=== PATIENT | male | born 1950 | race Caucasian/White ===

== ENCOUNTER 2017-02-03 13:13 | Emergency (ER) | payer SELFPAY ==
[~2017-02-03 13:13] MED LIST: BUPRTAB PO; DOXE100C4 PO; GEMF600T PO; IBUP-1050 PO; MULT-506 PO; MULT-600 PO; NAPR1CAP12 PO; OXYC-57 PO
== END 2017-02-03 13:21 | disposition home or self-care (01) ==
LOC: C.EDB 13:15
DX: K59.00 Constipation, unspecified (principal)

== ENCOUNTER 2017-09-29 12:31 | Emergency (ER) | payer SELFPAY ==
[~2017-09-29] VITALS: Ht 174 cm; Wt 92.4 kg
[2017-09-29 12:38] VITALS: TEMP 36.8; Ht 174 cm; Wt 92.4 kg
--- NOTE | 2017-09-29 12:55 | EMERGENCY ROOM VISIT NOTE ---
History Report prepared by Chachaibmarcin: Rhianna Jackson Under the Supervision of: Dr. Fede Carty M.D. First contact with patient: 12:45 Chief Complaint: RESPIRATORY PROBLEMS Stated Complaint: TROUBLE BREATHING DUE TO CHEST COLD History of Present Illness The patient is a 67 year old male who presents to the Emergency Room with complaints of worsening breathing difficulty for the past 3 weeks. He states he developed a chest cold 3 weeks ago, and since then has become increasingly short of breath. He reports "I've been coughing a lot and every now and then, I feel like I'm not getting enough air". Earlier today while watching TV, he experienced an episode of feeling very short of breath, so he decided to come to the ED. The patient notes his cough is productive with clear sputum. He experienced rhinorrhea when the cold first started, but states it has resolved. He did receive a flu shot this year. He denies chest pain or increase in his symptoms when he shoveled snow approximately 1 week ago. The patient admits he was briefly a smoker approximately 40 years ago. He denies any history of chronic lung problems but has experienced bronchitis in the past. He does not take daily blood thinners and denies any history of blood clots or diabetes. His reports he takes daily Lipitor, Clonazepam and Oxycodone for chronic knee and back pain. He denies any recent fevers, sore throat, chest pain, abdominal pain, nausea, vomiting, diarrhea or urinary symptoms. Source of History: patient, spouse/significant other () Onset: 3 weeks [employer] Position: chest Timing: worsening Associated Symptoms: + cough, No fevers, No sorethroat, No chest pain, No nausea, No vomiting, No abdominal pain, No diarrhea, No urinary symptoms Review of Systems See HPI for pertinent positives & negatives. A total of 10 systems reviewed and were otherwise negative. Past Medical & Surgical Medical Problems: (1) Benign hypertension (2) Hyperlipidemia (3) Lumbar disc disease (4) RMSF ([place] spotted fever) Old medical records were reviewed. Nurse's notes were reviewed and I agree with. Family History No significant family history Social History Smoking Status: Former Smoker Alcohol Use: none Drug Use: none Marital Status: , Housing Status: lives with significant other Occupation Status: retired Current/Historical Medications Scheduled Atorvastatin (Lipitor), 20 MG PO DAILY Doxepin Hcl (Doxepin), 100 MG PO QPM Multiple Vitamins W/ Minerals (Mens Multi Vitamin & Mine), 1 PKT PO DAILY Scheduled PRN Ibuprofen (Advil), 800 MG PO DAILY PRN Oxycodone/Acetaminophen 5MG/325MG (Percocet 5MG/325MG), 1 TABLET PO TID PRN for Pain Allergies Coded Allergies: Bacitracin (Verified Allergy, Intermediate, facial swelling, 01/21/15) Neomycin (Verified Allergy, Intermediate, facial swelling, 01/21/15) Polymyxin B (Verified Allergy, Intermediate, facial swelling, 01/21/15) Physical Exam Vital Signs Date Time Temp Pulse Resp B/P (MAP) Pulse Ox O2 Delivery O2 Flow Rate FiO2 09/29/17 17:20 73 16 136/81 96 09/29/17 15:15 73 16 136/81 96 Room Air 09/29/17 13:49 82 18 125/87 95 Room Air 09/29/17 13:08 97 09/29/17 12:38 36.8 109 18 149/93 97 Room Air Physical Exam General: Well developed, well nourished non-ill appearing middle aged male, in no acute distress, breathing comfortably on room air. Normal speech HEENT: Normal cephalic atraumatic. Pupils are equal round and reactive to light. Extraocular movements are intact. Oropharynx is pink with moist mucous membranes. No swelling of the mouth lips or tongue. Neck: Supple with a midline trachea. No meningeal signs or stiffness, no JVD or bruits. No Stridor. Chest: Clear to auscultation bilaterally. Occasional dry cough. No wheezes or rhonchi. No increased work of breathing. Heart: regular rate and rhythm. Abdomen: Soft nontender, nondistended without rebound guarding or rigidity. Extremities: No cyanosis clubbing or edema. No calf tenderness or assymetry Spine/Back. Non tender to palpation. No CVA tenderness Skin: Good turgor without rashes. Neurologic exam: Cranial nerves two through 12 are intact. Motor and sensation are intact and symmetrical throughout. Medical Decision & Procedures ER Provider Diagnostic Interpretation: Radiology results as stated below per my review and radiologist interpretation: SINGLE VIEW CHEST CLINICAL HISTORY: Atypical chest pain. FINDINGS: An AP, portable, upright chest radiograph is obtained. No prior studies are available for comparison at the time of dictation. The examination is degraded by portable technique and patient rotation. The cardiomediastinal silhouette is unremarkable. The lungs and pleural spaces are clear. No pneumothorax is seen. The bony thorax is grossly intact. IMPRESSION: No active disease in the chest. Electronically signed by: Suresh Hector M.D. 09/29/2017 1:[address] ANGIOGRAM OF THE CHEST CLINICAL HISTORY: Dyspnea. COMPARISON STUDY: Chest x-ray dated 09/29/2017. TECHNIQUE: Following the IV administration of 105 cc of Optiray 320, CT angiogram of the chest was performed from the upper abdomen to the thoracic inlet utilizing the pulmonary embolus protocol. Images are reviewed in the axial, sagittal, and coronal planes. 3-D MIPS images are created and assessed. IV contrast was administered without complication. A dose lowering technique was utilized adhering to the principles of ALARA. CT DOSE: 489.30 mGycm FINDINGS: Thyroid: Imaged portions of the thyroid gland are normal in size and attenuation. Thoracic aorta: The thoracic aorta is normal in caliber and demonstrates standard 3-vessel arch anatomy. No dissection is seen. Pulmonary vasculature: The pulmonary trunk is normal in caliber. There are no filling defects identified in main, lobar, or segmental pulmonary branches to suggest pulmonary embolus. Heart: The heart is normal in size and configuration, and without pericardial effusion. The coronary arteries are densely calcified. Lungs and pleural spaces: The lungs and pleural spaces are clear. Trachea and central airways are patent. Mediastinum: There is no mediastinal lymphadenopathy. Nadiya: Clear. Axillae: There is no axillary lymphadenopathy. Upper abdomen: There is a tiny hiatal hernia. Partially visualized upper abdominal viscera is within normal limits. Skeletal structures: The skeletal structures are osteopenic. Mild degenerative change is noted throughout the thoracic spine. No lytic or blastic bony lesions are seen. IMPRESSION: 1. There is no evidence of pulmonary embolus in the main, lobar, or segmental pulmonary arteries. 2. The lungs are clear. Electronically signed by: Suresh Hector M.D. 09/29/2017 3:42 PM Laboratory Results 09/29/17 13:28 Red Blood Count 4.09, Mean Corpuscular Volume 99.0, Mean Corpuscular Hemoglobin 34.5, Mean Corpuscular Hemoglobin Concent 34.8, Mean Platelet Volume 10.1, Neutrophils (%) (Auto) 53.6, Lymphocytes (%) (Auto) 32.1, Monocytes (%) (Auto) 11.5, Eosinophils (%) (Auto) 2.4, Basophils (%) (Auto) 0.1, Neutrophils # (Auto ) 4.19, Lymphocytes # (Auto) 2.51, Monocytes # (Auto) 0.90, Eosinophils # (Auto ) 0.19, Basophils # (Auto) 0.01 09/29/17 13:28 Test 09/29/17 13:28 09/29/17 13:31 White Blood Count 7.82 K/uL (4.8-10.8) Red Blood Count 4.09 M/uL (4.7-6.1) Hemoglobin 14.1 g/dL (14.0-18.0) Hematocrit 40.5 % (42-52) Mean Corpuscular Volume 99.0 fL (80-100) Mean Corpuscular Hemoglobin 34.5 pg (25-34) Mean Corpuscular Hemoglobin Concent 34.8 g/dl (32-36) Platelet Count 263 K/uL (130-400) Mean Platelet Volume 10.1 fL (7.4-10.4) Neutrophils (%) (Auto) 53.6 % Lymphocytes (%) (Auto) 32.1 % Monocytes (%) (Auto) 11.5 % Eosinophils (%) (Auto) 2.4 % Basophils (%) (Auto) 0.1 % Neutrophils # (Auto) 4.19 K/uL (1.4-6.5) Lymphocytes # (Auto) 2.51 K/uL (1.2-3.4) Monocytes # (Auto) 0.90 K/uL (0.11-0.59) Eosinophils # (Auto) 0.19 K/uL (0-0.5) Basophils # (Auto) 0.01 K/uL (0-0.2) RDW Standard Deviation 41.4 fL (36.4-46.3) RDW Coefficient of Variation 11.6 % (11.5-14.5) Immature Granulocyte % (Auto) 0.3 % Immature Granulocyte # (Auto) 0.02 K/uL (0.00-0.02) D-Dimer 690 ug/L FEU (0-500) Anion Gap 6.0 mmol/L (3-11) Est Creatinine Clear Calc Drug Dose 65.8 ml/min Estimated GFR () 72.5 Estimated GFR (Non- 62.6 BUN/Creatinine Ratio 18.7 (10-20) Calcium Level 9.1 mg/dl (8.5-10.1) Total Bilirubin 0.3 mg/dl (0.2-1) Direct Bilirubin < 0.1 mg/dl (0-0.2) Aspartate Amino Transf (AST/SGOT) 24 U/L (15-37) Alanine Aminotransferase (ALT/SGPT) 29 U/L (12-78) Alkaline Phosphatase 86 U/L (45-117) Pro-B-Type Natriuretic Peptide 138 pg/ml (0-900) Total Protein 8.3 gm/dl (6.4-8.2) Albumin 3.7 gm/dl (3.4-5.0) Lipase 144 U/L (73-393) Bedside Troponin I < 0.030 ng/ml (0-0.045) Laboratory studies as stated above per my review. Medications Administered Medications (Trade) Dose Ordered Sig/Wesley Route Start Time Stop Time Status Last Admin Dose Admin Azithromycin (Zithromax Tab) 500 mg NOW ONCE PO 09/29/17 16:15 09/29/17 16:16 DC 09/29/17 16:27 500 MG ECG Indication: SOB/dyspnea Rate (beats per minute): 92 Rhythm: normal sinus Findings: PAC (occasional PAC), other (Non-specific T-wave abnormality) Change: no significant change (No change from EKG on 01/06/07) Change: EKG interpreted by me. ED Course 1248: Past medical records reviewed. The patient was evaluated in room C11B, and a complete history and physical examination were performed. 1442: I reevaluated the patient. He is resting comfortably. 1600: I reevaluated the patient. He is feeling better and resting comfortably. I discussed his results and discharge instructions and he verbalized complete understanding and agreement. 1615: Azithromycin 500 mg PO. Medical Decision The differential diagnoses considered include bronchitis, pneumonia, viral illness, cardiac disease, PE or electrolyte or metabolic abnormality. This patient comes in as described above. He was placed in room C 11. He's been having a cough for about 3 weeks. He is afebrile and appears in no distress with exception of a hacking cough. He's not hypoxemic. IV access established. EKG was obtained and multiple blood testing was obtained. Chest x- ray was unremarkable. EKG does not suggest acute coronary syndrome or arrhythmia. He has nothing to suggest acute electrolyte or metabolic abnormalities or bacterial infection. His d-dimer was mildly elevated and in light of this, I did do a chest CT and there is no evidence of PE or infection. I think he does have a bronchitis. I will treat with azithromycin as it has been going on for several weeks and there could be atypical bacterial involvement. She should rest and return if: worsening of symptoms any new problems or concerns and follow-up with his doctor this week for recheck. Medication Reconcilliation Current Medication List: was personally reviewed by me Blood Pressure Screening Patient's blood pressure: Normal blood pressure Blood pressure disposition: Did not require urgent referral Impression Primary Impression: Bronchitis Scribe Attestation The scribe's documentation has been prepared under my direction and personally reviewed by me in its entirety. I confirm that the note above accurately reflects all work, treatment, procedures, and medical decision making performed by me. Departure Information Dispostion Home / Self-Care Referrals No Doctor, Assigned (PCP) Patient Instructions [facility] Additional Instructions Rest. Drink plenty of fluids. Return if: Worsening of symptoms, increasing shortness of breath, fever or chills, any new problems or concerns Use azithromycin Z-Asrh as directed Follow-up with your doctor this week for recheck
[2017-09-29] MEDS ORDERED: ATOR-22 PO (13:20)
--- NOTE | 2017-09-29 13:27 | DIAGNOSTIC IMAGING REPORT ---
SINGLE VIEW CHEST CLINICAL HISTORY: Atypical chest pain. FINDINGS: An AP, portable, upright chest radiograph is obtained. No prior studies are available for comparison at the time of dictation. The examination is degraded by portable technique and patient rotation. The cardiomediastinal silhouette is unremarkable. The lungs and pleural spaces are clear. No pneumothorax is seen. The bony thorax is grossly intact. IMPRESSION: No active disease in the chest. Electronically signed by: Suresh Hector M.D. 09/29/2017 1:25 PM Dictated Date/Time: 09/29/2017 1:25 PM
[2017-09-29 13:38] LABS: BASO % 0.1 %; BASO ABS # 0.01 K/uL (0-0.2); EOS % 2.4 %; EOS ABS # 0.19 K/uL (0-0.5); HEMATOCRIT 40.5 % (42-52); HEMOGLOBIN 14.1 g/dL (14.0-18.0); IG# 0.02 K/uL (0.00-0.02); LYMPH % 32.1 %; LYMPH ABS # 2.51 K/uL (1.2-3.4); MEAN CORPUSCULAR HEMOGLOBIN 34.5 pg (25-34); MEAN CORPUSCULAR HGB CONC 34.8 g/dl (32-36); MEAN PLATELET VOLUME 10.1 fL (7.4-10.4); MONO % 11.5 %; NEUT % 53.6 %; NEUT ABS # 4.19 K/uL (1.4-6.5); PLATELET COUNT 263 K/uL (130-400); RED CELL DISTRIBUTION WIDTH CV 11.6 % (11.5-14.5); RED CELL DISTRIBUTION WIDTH SD 41.4 fL (36.4-46.3); WHITE BLOOD COUNT 7.82 K/uL (4.8-10.8)
[2017-09-29 13:56] LABS: ALBUMIN 3.7 gm/dl (3.4-5.0); BLOOD UREA NITROGEN 22 mg/dl (7-18); CALCIUM 9.1 mg/dl (8.5-10.1); CARBON DIOXIDE 27 mmol/L (21-32); CREATININE 1.18 mg/dl (0.60-1.40); GLUCOSE 101 mg/dl (70-99); LIPASE 144 U/L (73-393); POTASSIUM 3.9 mmol/L (3.5-5.1); SODIUM 134 mmol/L (136-145)
[2017-09-29 14:01] LABS: ALKALINE PHOSPHATASE 86 U/L (45-117); ALT/SGPT 29 U/L (12-78); AST/SGOT 24 U/L (15-37); TOTAL PROTEIN 8.3 gm/dl (6.4-8.2)
[2017-09-29] MEDS ORDERED: OPTIRAY 320 IV PRN (14:45)
--- NOTE | 2017-09-29 15:43 | DIAGNOSTIC IMAGING REPORT ---
CT ANGIOGRAM OF THE CHEST CLINICAL HISTORY: Dyspnea. COMPARISON STUDY: Chest x-ray dated 09/29/2017. TECHNIQUE: Following the IV administration of 105 cc of Optiray 320, CT angiogram of the chest was performed from the upper abdomen to the thoracic inlet utilizing the pulmonary embolus protocol. Images are reviewed in the axial, sagittal, and coronal planes. 3-D MIPS images are created and assessed. IV contrast was administered without complication. A dose lowering technique was utilized adhering to the principles of ALARA. CT DOSE: 489.30 mGycm FINDINGS: Thyroid: Imaged portions of the thyroid gland are normal in size and attenuation. Thoracic aorta: The thoracic aorta is normal in caliber and demonstrates standard 3-vessel arch anatomy. No dissection is seen. Pulmonary vasculature: The pulmonary trunk is normal in caliber. There are no filling defects identified in main, lobar, or segmental pulmonary branches to suggest pulmonary embolus. Heart: The heart is normal in size and configuration, and without pericardial effusion. The coronary arteries are densely calcified. Lungs and pleural spaces: The lungs and pleural spaces are clear. Trachea and central airways are patent. Mediastinum: There is no mediastinal lymphadenopathy. Nadiya: Clear. Axillae: There is no axillary lymphadenopathy. Upper abdomen: There is a tiny hiatal hernia. Partially visualized upper abdominal viscera is within normal limits. Skeletal structures: The skeletal structures are osteopenic. Mild degenerative change is noted throughout the thoracic spine. No lytic or blastic bony lesions are seen. IMPRESSION: 1. There is no evidence of pulmonary embolus in the main, lobar, or segmental pulmonary arteries. 2. The lungs are clear. Electronically signed by: Suresh Hector M.D. 09/29/2017 3:42 PM Dictated Date/Time: 09/29/2017 3:37 PM
[2017-09-29] MEDS ORDERED: AZITHROMYCIN 250 MG TAB PO ONE (16:15)
[2017-09-29 17:20] VITALS: BP 136/81; PULSE 73; O2SAT 96
== END 2017-09-29 17:21 | disposition home or self-care (01) ==
LOC: C.EDB 12:32 → C.EDC 17:21
DX: J40 Bronchitis, not specified as acute or chronic (principal); I10 Essential (primary) hypertension; E78.5 Hyperlipidemia, unspecified; Z87.891 Personal history of nicotine dependence

== ENCOUNTER 2019-07-21 10:54 | Observation (INO) ==
[2019-07-11 14:34] LABS: Basophils # (auto) 0.01 K/uL (0-0.2); Basophils % (auto) 0.1 %; Eosinophils # (auto) 0.12 K/uL (0-0.5); Eosinophils % (auto) 1.8 %; Hematocrit (blood only) 41.4 % (42-52); Hemoglobin 14.2 g/dL (14.0-18.0); Lymphocytes # (auto) 2.34 K/uL (1.2-3.4); Lymphocytes % (auto) 34.9 %; Mean Corpuscular Hemoglobin 35.2 pg (25-34); Mean Corpuscular Hgb Conc 34.3 g/dL (32-36); Mean Corpuscular Volume 102.7 fL (80-100); Mean Platelet Volume 10.1 fL (7.4-10.4); Monocytes # (auto) 0.76 K/uL (0.11-0.59); Monocytes % (auto) 11.3 %; Neutrophils # (auto) 3.47 K/uL (1.4-6.5); Neutrophils % (auto) 51.9 %; Platelet Count 225 K/uL (130-400); RDW Coefficient of Variation 12.1 % (11.5-14.5); RDW Standard Deviation 45.4 fL (36.4-46.3); Red Blood Count 4.03 M/uL (4.7-6.1)
[2019-07-11 14:59] LABS: INR 0.9 (0.9-1.1); Partial Thromboplastin Time 26.4 Seconds (21.0-31.0); Prothrombin Time 9.7 Seconds (9.0-12.0)
[2019-07-11 15:09] LABS: BUN Creatinine Ratio 16.2 (10-20); Blood Urea Nitrogen 23 mg/dl (7-18); Calcium 9.2 mg/dl (8.5-10.1); Carbon Dioxide 30 mmol/L (21-32); Chloride 104 mmol/L (98-107); Est GFR (African American) 57.6; Est GFR (Non-African American) 49.7; Glucose 120 mg/dl (70-99); Potassium 4.2 mmol/L (3.5-5.1); Sodium 138 mmol/L (136-145)
--- NOTE | 2019-07-16 13:08 | Anesthesiology Consultation ---
Date of Service July 16, 2019 Assessment & Plan (1) Encounter for pre-operative examination: Chart Review Chart Review: Acceptable Risk for Surgery and Patient NOT seen in Pre Admission Testing Consults Requested none History Surgery Operation Date: 07/21/19 12:10 Proposed Procedures p L4-L5 Laminectomy and Fusion - Brian Genao DO Height/Weight Height: 5 ft 8.5 in Weight: 95.254 kg Allergies Allergy/AdvReac Type Severity Reaction Status Date / Time bacitracin Allergy Intermediate facial Verified 07/15/19 14:28 swelling neomycin Allergy Intermediate facial Verified 07/15/19 14:28 swelling polymyxin B Allergy Intermediate facial Verified 07/15/19 14:28 swelling meloxicam Allergy Mild N/V Verified 07/15/19 14:29 Medications Home Medications Medication Instructions Recorded Confirmed Last Taken acetaminophen [Tylenol Extra 500 mg PO TID 07/15/19 07/15/19 Unknown Strength] aspirin 81 mg PO HS 07/15/19 07/15/19 Unknown atorvastatin [Lipitor] 40 mg PO PM 07/15/19 07/15/19 Unknown bupropion HCl 300 mg PO QAM 07/15/19 07/15/19 Unknown clonazepam 0.5 mg PO TID PRN 07/15/19 07/15/19 Unknown doxepin 150 mg PO HS 07/15/19 07/15/19 Unknown ibuprofen 600 mg PO QID 07/15/19 07/15/19 Unknown multivitamin 1 cap PO HS 07/15/19 07/15/19 Unknown oxycodone-acetaminophen 1 tab PO QID PRN 07/15/19 07/15/19 Unknown Past Medical History Medical History Lumbar stenosis (Acute) Depression Hx of skin cancer, basal cell FROM LEG AND HAD REMOVED Hyperlipidemia Osteoarthritis Past Surgical History Surgical History History of right cataract surgery Hx of right knee surgery Hx of total knee replacement RIGHT Social History Smoking Status: Never smoker Do You Dip or Chew Tobacco: No Hx Alcohol Use: No Hx Substance Use: No substance use type: does not use Testing Laboratory Results 07/11/19 13:53 07/11/19 13:53 PT 9.7 Seconds (9.0-12.0) 07/11/19 13:53 INR 0.9 (0.9-1.1) 07/11/19 13:53 APTT 26.4 Seconds (21.0-31.0) 07/11/19 13:53 Blood Type A Negative 07/11/19 13:53 Antibody Screen NEGATIVE 07/11/19 13:53 Electrocardiogram Date: 07/11/19 Findings: + NSR @ Chest X-Ray Date: 07/11/19 Findings: + NAD
--- NOTE | 2019-07-18 14:17 | History and Physical Report ---
DATE OF ADMISSION: 07/21/2019 CHIEF COMPLAINT: Back pain, lower extremity difficulty, paresthesias, numbness and tingling, sciatica. He has a working diagnosis of stenosis and mild instability, lumbar spine with degenerative changes and disc herniation. He has failed conservative measures. PAST MEDICAL HISTORY: Positive for anxiety, but no COPD, diabetes, carcinoma. PAST SURGICAL HISTORY: Knee replacement. ALLERGIES: Negative. CURRENT MEDICATIONS: Lipitor, doxepin, ibuprofen, Tylenol, oxycodone. SOCIAL HISTORY: . No tobacco. Active lifestyle. REVIEW OF SYSTEMS: Positive for back pain. No fevers, sweats, chills, no bowel and bladder issues. No pain, cough, sneeze. Denies any chest pain, palpitations. Denies any nausea, vomiting, urgency, frequency or loss of bowel and bladder function. OBJECTIVE: GENERAL: He is 5 feet 6 inches, 190 pounds. He is in no terrible distress. VITAL SIGNS: Blood pressure 130/80, pulse 80, respirations 16. HEENT: Pupils react to light and accommodation. Ear, nose and throat clear. ABDOMEN: Soft, tender, good bowel sounds. CARDIAC: Normal S1, S2. LUNGS: Clear to auscultation. NEUROLOGIC: He has some weakness. He has slight loss of sensation, slight loss of motor ability, but good vascularity. Images demonstrate stenosis and disc protrusion L4-L5 lumbar. PLAN: Includes a laminectomy and fusion L4-L5. [facility]
[~2019-07-21 10:54] MED LIST changes: +ACETAMINOPHEN 1,000 MG/100 ML VIAL IV SCH; +ACETAMINOPHEN 500 MG TAB PO SCH; +BUPIVACAINE 0.5 % 5 MG/1 ML MPF 30ML VIAL ONE; -BUPRTAB PO; +CEFAZOLIN 2000MG 2,000 MG/15 ML SYR IV SCH; +CEFAZOLIN 250 MG/ML 1 GM VIAL ONE; -DOXE100C4 PO; +EPINEPHrine INJ 1 MG/ML AMP ONE; +GELATIN SPONGE SZ 100 ONE; -GEMF600T PO; -IBUP-1050 PO; +LR 15ML/HR IV SCH; +MIDAZOLAM HCL 1 MG/ML 2ML VIAL ONE; -MULT-506 PO; -MULT-600 PO; -NAPR1CAP12 PO; -OXYC-57 PO; +SODIUM CHLORIDE 0.9% 1000ML IV SCH; +THROMBIN FOR SOLN 20000 UNIT KIT ONE; +VANCOMYCIN HCL 1000MG/20ML VIAL ONE; +fentaNYL citrate 100 MCG/2 ML VIAL ONE
--- NOTE | 2019-07-21 11:27 | History & Physical Bridge Note ---
Date of Service July 21, 2019 History & Physical Bridge Note I have examined the patient, reviewed the History & Physical and in the interval since the performance of the History & Physical I have noted the following changes of clinical significance: no changes noted
[2019-07-21] MEDS ORDERED: ePHEDrine sulfate 50 MG/ML AMP IV PRN (11:48)
[2019-07-21] MEDS ORDERED: ATROPINE SULFATE 0.1 MG/ML 10ML SYR IV PRN (11:48)
[2019-07-21] MEDS ORDERED: fentaNYL citrate 100 MCG/2 ML VIAL IV PRN (11:48)
[2019-07-21] MEDS ORDERED: HYDROmorphone INJ 1 MG/ML SYRINGE IV PRN (11:48)
[2019-07-21] MEDS ORDERED: HYDROmorphone INJ 2 MG/ML SYR/VIAL ONE (13:04)
[2019-07-21] MEDS ORDERED: PROPOFOL IV EMULSION 10 MG/ML 20 ML VIAL IV ONE (13:16)
[2019-07-21] MEDS ORDERED: DEXAMETHASONE SOD INJ 4 MG/ML VIAL ONE (13:16)
[2019-07-21] MEDS ORDERED: ONDANSETRON INJ 2 MG/ML 2 ML VIAL ONE (13:16)
[2019-07-21] MEDS ORDERED: GLYCOPYRROLATE 0.2 MG/ML VIAL ONE (13:16)
[2019-07-21] MEDS ORDERED: ePHEDrine sulfate 50 MG/ML SYR ONE (13:16)
[2019-07-21] MEDS ORDERED: ROCURONIUM BROMIDE 10 MG/ML 5 ML VIAL ONE (13:16)
[2019-07-21] MEDS ORDERED: LIDOCAINE HCL 2% 2 ML VIAL/AMP(20MG/ML) INFIL ONE (13:16)
[2019-07-21] MEDS ORDERED: LARYING-O-JET KIT (LTA) ONE (13:16)
[2019-07-21] MEDS ORDERED: NEOSTIGMINE METHYLSULFATE 5 MG/5 ML SYR ONE (13:16)
--- NOTE | 2019-07-21 14:02 | Post Operative Brief Note ---
PG Immediate Post Op with CF Date of Surgery July 21, 2019 Pre & Post Diagnosis Operation Date: 07/21/19 12:10 Pre-Op Diagnosis: Spinal Stenosis Post-Op Diagnosis: Spinal Stenosis I identified the patient and participated in the time-out.: Yes Procedure Operation Date: 07/21/19 12:10 Actual Procedures p L4-L5 Laminectomy(Not Applicable) - Brian Genao DO Surgeon Brian Genao DO Mouthpiece Maker NELLIE Estimated Blood Loss 50 Findings Consistent with Post-Op Diagnosis Specimens Specimen Description: none per surgeon Drains Hemovac Drain Complications none Overlapping Procedure I was immediately available: during the entire case.
--- NOTE | 2019-07-21 14:22 | Operative Report ---
DATE OF OPERATION: 07/21/2019 PREOPERATIVE DIAGNOSIS: Spinal stenosis L4 and L5 lumbar spine. POSTOPERATIVE DIAGNOSIS: Spinal stenosis L4 and L5 lumbar spine. PROCEDURE: Two-level laminectomy - all of 4, all of 5, lumbar spine. No fusion, no instrumentation. ESTIMATED BLOOD LOSS: Less than 50 mL. SURGEON: Brian Genao DO. FIRE EXTINGUISHER MECHANIC: Seymour Alejandro. COMPLICATIONS: Zero. DESCRIPTION OF PROCEDURE: The patient was taken to the operative area, general intubated anesthetic provided, placed prone, scrubbed, prepped and draped sterile. We took a formal timeout. We made a skin incision, fascial incision, got down to the lamina of L4 and L5. We marked this with C-arm guidance. I did a midline laminectomy of L4-L5. I took off the entire lamina of L4 up to L3-L4. I went below and took off the lamina of L5 up to L4-L5; this was a 2-level laminectomy. I was pleased with the decompression. I did good foraminotomies. I protected the dura, opened up the nerve roots bilaterally. There was significant pressure. I was pleased with the decompression. There were no injuries to the dural structures. We irrigated thoroughly. I assessed the patient for instability. There was some facet joint hypertrophy. I did not feel I created any iatrogenic instability. There was no gross spondylolisthesis. No scoliosis. I did not feel a fusion plus/minus instrumentation was required. After I irrigated thoroughly once again and placed Gelfoam over the dural structures, vancomycin powder, closed over a Hemovac drain with 1 Vicryl suture 2-0 and on the skin surface, we used 3-0 nylon. Sterile dressings applied. The patient was returned to PACU stable. No apparent complications with the surgery. I attest to the content of the Intraoperative Record and any orders documented therein. Any exception s are noted below.
--- NOTE | 2019-07-21 14:33 | Anesthesiology Progress Note ---
Date of Service July 21, 2019 Anesthesia Post Procedure Vital Signs Vital Signs: Temp Pulse Pulse Resp BP BP Pulse Ox 07/21/19 14:25 88 14 155/84 H 100 07/21/19 14:15 92 H 16 147/75 H 100 07/21/19 14:07 36.4 C L 86 14 132/82 100 07/21/19 12:02 36.9 C 90 20 152/99 H 97 Pain Intensity Back: Pain Intensity: 3 Transfer of Care Handoff Completed per policy Notes Mental Status: alert / awake / arousable Patient Amnestic to Procedure: Yes Nausea / Vomiting: adequately controlled Pain: adequately controlled Airway Patency, RR, SpO2: stable & adequate BP & HR: stable & adequate Hydration State: stable & adequate Anesthetic Complications: no major complications apparent and Pt Satisfied with anesthetic care
--- NOTE | 2019-07-21 14:50 | Fluoroscopy Report ---
FL spine 1V any level CLINICAL HISTORY: 69 years-old Male presenting with L4-5 LAMINECTOMY/FUSION. TECHNIQUE: 2 fluoroscopic image(s) recorded as part of an intraoperative procedure. COMPARISON: Lumbar spine MR from 07/01/2019. FINDINGS/IMPRESSION: Surgical material and a lap band project over the posterior soft tissues of the lower lumbar spine. N ormal anatomic alignment. Spondylosis is evident. Please see surgical report for further details. Fluoroscopy dosage (mGy): 1.34. Fluoroscopy time: 2.7 seconds. Number or time of high level fluoroscopy (HLF), digital spot, or digital subtraction images: 0. Electronically signed by: Vipin Alonso M.D. 07/21/2019 2:48 PM
[2019-07-21] MEDS ORDERED: KETOROLAC TROMETHAMINE 15 MG/ML VIAL IV PRN (14:57)
[2019-07-21] MEDS ORDERED: ACETAMINOPHEN 1,000 MG/100 ML VIAL IV PRN (14:57)
[2019-07-21] MEDS ORDERED: ONDANSETRON INJ 2 MG/ML 2 ML VIAL IV PRN (14:57)
[2019-07-21] MEDS ORDERED: HYDROmorphone INJ 0.5 MG/0.5 ML SYR IV PRN (14:57)
[2019-07-21] MEDS: OXYCODONE HCL IR 5 MG TAB (IMMEDIATE RELEASE) PO PRN ×2 (18:00→22:13)
[2019-07-21] MEDS: CEFAZOLIN 2000MG 2,000 MG/15 ML SYR IV SCH (18:38)
[2019-07-21] MEDS ORDERED: COUGH DROP (SUGAR FREE) LOZ 24 LOZ/1 BOX BUCCAL PRN (19:56)
[2019-07-21] MEDS: LACTATED RINGER'S 1,000 ML IV SCH (20:19)
[2019-07-21] MEDS: clonazePAM 0.5 MG TAB PO PRN (20:22)
[2019-07-21] MEDS ORDERED: ATORVASTATIN 40 MG TAB PO SCH (21:00)
[2019-07-21] MEDS ORDERED: ASPIRIN 81 MG ECTAB PO SCH (21:00)
[2019-07-22] MEDS: CEFAZOLIN 2000MG 2,000 MG/15 ML SYR IV SCH ×2 (01:46→09:20)
[2019-07-22] MEDS: OXYCODONE HCL IR 5 MG TAB (IMMEDIATE RELEASE) PO PRN ×2 (05:35→09:20)
[2019-07-22] MEDS: LACTATED RINGER'S 1,000 ML IV SCH (05:35)
[2019-07-22] MEDS: clonazePAM 0.5 MG TAB PO PRN (07:11)
--- NOTE | 2019-07-22 08:49 | Discharge Summary ---
SUBJECTIVE: He is alert, oriented, minimal complaints of pain. Ambulatory taking p.o. OBJECTIVE: All vitals stable. ASSESSMENT: Status post lumbar spine laminectomy. PLAN: We will discharge him home later on this morning. Instructions, precautions given in the office, here in the hospital. He has ice. He has a back brace. He has medication. He is stable and sent for discharge. He had an uneventful course.
[2019-07-22] MEDS ORDERED: BuPROPion XL 300 MG TABCR PO SCH (09:00)
[2019-07-23] MEDS ORDERED: POLYETHYLENE (MIRALAX) 17 GM PACK PO SCH (09:00)
== END 2019-07-22 09:34 | disposition home or self-care (01) ==
LOC: 3E 10:54 → ASU 10:54

== ENCOUNTER 2022-05-02 11:10 | Observation (INO) ==
--- NOTE | 2022-04-19 14:01 | PAT Medication Instructions ---
Medication Instructions Date of Service April 19, 2022 Home Medications acetaminophen 500 mg tablet (Tylenol Extra Strength) 500 mg PO TID PRN Pain aspirin 81 mg chewable tablet 81 mg PO HS atorvastatin 40 mg tablet (Lipitor) 40 mg PO PM doxepin 150 mg capsule 150 mg PO HS ibuprofen 200 mg capsule 800 mg PO BID multivitamin 1 cap PO HS aripiprazole 10 mg tablet 10 mg PO QAM oxycodone 10 mg tablet 10 mg PO TID PRN Pain ASK your surgeon for instructions ibuprofen 200 mg capsule 800 mg PO BID ASK your prescriber for instructions doxepin 150 mg capsule 150 mg PO HS aripiprazole 10 mg tablet 10 mg PO QAM Take morning of surgery With a small sip of water, OTHERWISE NOTHING TO EAT OR DRINK AFTER MIDNIGHT: acetaminophen 500 mg tablet (Tylenol Extra Strength) 500 mg PO TID PRN Pain (if needed) oxycodone 10 mg tablet 10 mg PO TID PRN Pain (if needed) Take evening before surgery acetaminophen 500 mg tablet (Tylenol Extra Strength) 500 mg PO TID PRN Pain (if needed) aspirin 81 mg chewable tablet 81 mg PO HS (unless surgeon directed otherwise) atorvastatin 40 mg tablet (Lipitor) 40 mg PO PM multivitamin 1 cap PO HS oxycodone 10 mg tablet 10 mg PO TID PRN Pain (if needed) Other Notes If you have any questions please call us at [phone] or [phone] or [phone] or [phone]
--- NOTE | 2022-04-24 10:15 | Anesthesiology Consultation ---
Date of Service April 24, 2022 Assessment & Plan (1) Encounter for pre-operative examination: - Patient acceptable risk for surgery pending surgeon-ordered PCP preop evaluation (Katerin Del Toro NP, NEY[facility] Green). - COVID screening: Per assessment on 04/24: No known COVID-19 positive contacts or current COVID-19 related symptoms. Travel screen negative x 2+ weeks. Patient was Covid positive mid 03/2022 (home test, + send out from home). Symptoms at time: mild fever, lethargic > resolved. Patient reports results from home send out Covid positive report was sent to his email but he does not have the email anymore. Per response from Nury at infectious control, patient's options are Nielsen DOS or testing today/prior to surgery in order to have baseline testing on file (given patient only had home testing/unable to confirm initial positive testing). Patient had preop Covid testing done 04/24 ([facility] PAT). Awaiting results . If positive, surgery will need to be delayed until day 11 (05/05 or later). If negative, okay to proceed as scheduled. Given pt requiring admission post- operatively, per protocol, would need COVID Nielsen AM DOS due to possibility that patient may have a roommate. - S/P L4-5 laminectomy (07/21/19): Grade view 3, MAC 3.0, ETT 8.0, atraumatic. No issues noted per post-op anesthesia progress note. Chart Review Chart Review: Pending: Refer to Additional Notes / Consult section and Patient seen in Pre Admission Testing patient potentially eligible for outpatient joint program pending pcp visit information Teaching & Discussion Pre-Anesthesia Teaching/Discussion Notes: Instructed NPO after midnight before surgery,except medications with 15 cc of water. Medication instructions provided according to the PAT guidelines. History Surgery Operation Date: 05/02/22 10:20 Proposed Procedures p Left Total Knee Arthroplasty - Vipin Saavedra MD Height/Weight Height: 5 ft 8 in Weight: 95.1 kg Allergies Allergy/AdvReac Type Severity Reaction Status Date / Time bacitracin Allergy Intermediate facial Verified 08/29/19 13:13 swelling neomycin Allergy Intermediate facial Verified 08/29/19 13:13 swelling polymyxin B Allergy Intermediate facial Verified 08/29/19 13:13 swelling tramadol AdvReac Intermediate Nausea Verified 04/19/22 09:07 duloxetine AdvReac Mild Drowsy Verified 04/19/22 09:25 gabapentin AdvReac Mild Nightmare Verified 04/19/22 09:25 meloxicam AdvReac Mild N/V Verified 08/29/19 13:13 venlafaxine AdvReac Mild Hypertensio Verified 04/19/22 09:25 n Medications Home Medications Medication Instructions Recorded Confirmed Last Taken acetaminophen 500 mg tablet 500 mg PO TID PRN Pain 07/15/19 04/19/22 07/20/19 19:00 (Tylenol Extra Strength) aspirin 81 mg chewable tablet 81 mg PO HS 07/15/19 04/19/22 07/20/19 21:00 atorvastatin 40 mg tablet (Lipitor) 40 mg PO PM 07/15/19 04/19/22 07/20/19 21:00 doxepin 150 mg capsule 150 mg PO HS 07/15/19 04/19/22 07/20/19 21:00 ibuprofen 200 mg capsule 800 mg PO BID 07/15/19 04/19/22 07/20/19 20:00 multivitamin 1 cap PO HS 07/15/19 04/19/22 07/20/19 21:00 aripiprazole 10 mg tablet 10 mg PO QAM 04/19/22 04/19/22 Unknown oxycodone 10 mg tablet 10 mg PO TID PRN Pain 04/19/22 04/19/22 Unknown Past Medical History Medical History Depression History of COVID-19 Mid 03/2022 (home test, + send out from home) Symptoms at time: mild fever, lethargic > resolved Hx of skin cancer, basal cell From leg (removed) Hyperlipidemia Lumbar stenosis Osteoarthritis Exercise / Class Metabolic Activity II 4-5 Yardwork/Stairs/Walk up hill Past Surgical History Surgical History History of right cataract surgery Hx of right knee surgery Hx of total knee replacement Right S/P lumbar laminectomy L4-5 laminectomy (07/21/19): Grade view 3, MAC 3.0, ETT 8.0, atraumatic. No issues noted per post-op anesthesia progress note. Past Anesthesia History No Hx of Anesthesia Complications and No Family Hx of Anesthesia Complications History of PONV No Hx of PONV and No Hx of Motion Sickness Social History Smoking Status: Never smoker Do You Dip or Chew Tobacco: No Hx Alcohol Use: No Hx Substance Use: No substance use type: does not use Review of Systems Patient denies chest pain, shortness of breath, dyspnea on exertion, fever, chills, cough, wheezing, palpitations. Physical Exam Vital Signs VITALS BP 123/80 P 84 TEMP 98.3 SP02 97%RA RESP 16 PHYSICAL Full cervical extension range of motion. Full TMJ range of motion. TMD 4 finger breaths Mallampati Score 3 Dentition: intact, upper right side cap fell off Lungs: clear throughout to auscultation Cardiac: regular rate and rhythm, no murmurs noted Spine: normal Carotid arteries: negative bruit Extremities: no edema Lab Results Anesthesia Preop Results Results Anesthesia Widget: WBC 7.72 K/ul (4.8-10.8) 04/24/22 Hgb 13.5 g/dl (14.0-18.0) L 04/24/22 Hct 39.7 % (40.1-51.0) L 04/24/22 Plt 232 K/uL (130-400) 04/24/22 Na 136 mmol/L (136-145) 04/24/22 K 4.5 mmol/L (3.5-5.1) 04/24/22 Cl 103 mmol/L (98-107) 04/24/22 CO2 28 mmol/L (21-32) 04/24/22 BUN 24 mg/dl (6-23) H 04/24/22 Creat 1.22 mg/dl (0.6-1.4) 04/24/22 Glucose Level 96 mg/dl (70-99(Fasting)) 04/24/22 PT 10.3 Seconds (9.0-12.0) 04/24/22 PTT 28.2 Seconds (21.0-31.0) 04/24/22 INR 1.0 (0.9-1.1) 04/24/22 Blood Type A Negative 04/24/22 Antibody Screen NEGATIVE 04/24/22 Testing Electrocardiogram Date: 04/24/22 NSR at 75bpm. Chest X-Ray Date: 04/24/22 FINDINGS: Lung volumes are normal. Lungs are clear. There is no pneumothorax or pleural effusion. Cardiac size is normal. Mediastinal contours are normal. There is no evidence for pulmonary edema. IMPRESSION: No acute cardiopulmonary findings. Echocardiogram Date: 05/29/18 EF 50%. E/a reversal consistent with but not diagnostic of poor LV compliance. Mild LAD. Mild AR/MR/TR/DC. Stress Test Date: 05/29/18 Type: exercise Negative for ischemia by EKG criteria. 5.2 METS. 86% MPHR.
[~2022-05-02 11:10] MED LIST changes: -ACETAMINOPHEN 1,000 MG/100 ML VIAL IV SCH; -BUPIVACAINE 0.5 % 5 MG/1 ML MPF 30ML VIAL ONE; +BUPIVACAINE 0.5 % 5 MG/1 ML PF 10ML VIAL ONE; -CEFAZOLIN 2000MG 2,000 MG/15 ML SYR IV SCH; -CEFAZOLIN 250 MG/ML 1 GM VIAL ONE; +CeleBREX 200 MG CAP PO SCH; +FAMOTIDINE 20 MG TAB PO SCH; -GELATIN SPONGE SZ 100 ONE; -LR 15ML/HR IV SCH; +LR 60ML/HR IV SCH; +METOCLOPRAMIDE HCL 10 MG TABLET PO SCH; -MIDAZOLAM HCL 1 MG/ML 2ML VIAL ONE; +ROPIVACAINE 0.5% 5 MG/ML 30 ML VIAL ONE; +ROPIVACAINE 0.5% HCL/PF 150 MG, BUPIVACAINE 0.75% MPF 20 ML, EPINEPHrine 0.15 MG, Ketor... INFIL SCH; -SODIUM CHLORIDE 0.9% 1000ML IV SCH; -THROMBIN FOR SOLN 20000 UNIT KIT ONE; +TRANEXAMIC ACID 1,000 MG **IV Intra-op IV SCH; +TRANEXAMIC ACID 1,000 MG **IV Pre-op IV SCH; -VANCOMYCIN HCL 1000MG/20ML VIAL ONE; +ceFAZolin 2000MG 2,000 MG/15 ML SYR IV SCH; +cloNIDine HCL 0.1 MG/24 HR TRANSDERM SYS TD SCH; +dexAMETHasone 4 MG TAB PO SCH; -fentaNYL citrate 100 MCG/2 ML VIAL ONE; +oxyCODONE HCL 10 MG TABCR (OxyCONTIN) PO SCH
[2022-05-02] MEDS ORDERED: ONDANSETRON INJ 2 MG/ML 2 ML VIAL ONE (11:47)
[2022-05-02] MEDS ORDERED: PROPOFOL IV EMULSION 10 MG/ML 20 ML VIAL IV ONE (11:47)
[2022-05-02] MEDS ORDERED: LIDOCAINE 2% MPF LOCAL 5 ML VIAL INFIL ONE ×2 (11:47→14:26)
[2022-05-02] MEDS ORDERED: MIDAZOLAM HCL 1 MG/ML 2ML VIAL ONE ×2 (11:47→11:48)
--- NOTE | 2022-05-02 13:23 | History & Physical Bridge Note ---
Date of Service May 02, 2022 History & Physical Bridge Note I have examined the patient, reviewed the History & Physical and in the interval since the performance of the History & Physical I have noted the following changes of clinical significance: no changes noted
[2022-05-02] MEDS ORDERED: ORTHO JOINT ANESTHETIC ONE (13:45)
[2022-05-02] MEDS ORDERED: NALOXONE HCL 0.4 MG/1 ML VIAL/CARP IV PRN ×2 (14:13→17:54)
[2022-05-02] MEDS ORDERED: ONDANSETRON INJ 2 MG/ML 2 ML VIAL IV PRN ×2 (14:13→17:54)
[2022-05-02] MEDS ORDERED: fentaNYL citrate 100 MCG/2 ML VIAL IV PRN (14:13)
[2022-05-02] MEDS ORDERED: ePHEDrine sulfate 50 MG/ML AMP IV PRN (14:13)
[2022-05-02] MEDS ORDERED: PROMETHAZINE HCL 12.5 MG in SODIUM CHLORIDE 0.9% 50 ML IV PRN (14:13)
[2022-05-02] MEDS ORDERED: HYDROmorphone INJ 1 MG/ML SYRINGE IV PRN ×2 (14:13→17:54)
[2022-05-02] MEDS ORDERED: ATROPINE SULFATE 0.1 MG/ML 10ML SYR IV PRN (14:13)
[2022-05-02] MEDS ORDERED: FLUMAZENIL 0.1 MG/1 ML 10 ML VIAL IV PRN (14:13)
[2022-05-02] MEDS ORDERED: ePHEDrine sulfate 50 MG/ML SYR ONE (14:33)
--- NOTE | 2022-05-02 16:45 | Operative Report ---
Post Operative Report Pre & Post Diagnosis Operation Date: 05/02/22 13:30 Pre-Op Diagnosis: Left Knee Degenerative Joint Disease Post-Op Diagnosis: Left Knee Degenerative Joint Disease I identified the patient and participated in the time-out.: Yes Procedure Operation Date: 05/02/22 13:30 Actual Procedures p Left Total Knee Arthroplasty(Left) - Vipin Saavedra MD Surgeon Vipin Saavedra MD Communications Strategist Izzy Vazquez. No resident or fellow available Estimated Blood Loss 5 Findings Consistent with Post-Op Diagnosis Specimens Resected bone and soft tissue Anesthesia Type MAC Spinal Regional Complications none Disposition Accompanied Patient To Recovery: No Disposition: Recovery Room Indications Lorenzo is 71. He has left knee arthritis refractory to nonsurgical management and would like to have operative intervention. Description of Procedure Informed consent obtained. Patient identified. He identified the operative site as the left knee. I marked with my initials. A preoperative surgical timeout was performed. A preop dose of IV antibiotics was given. TXA given. He was positioned supine on the OR table with a tourniquet on the left thigh and a bump under the left hip and left calf. The leg was prepped and draped in the usual sterile fashion. He had full extension varus alignment with 1+ MCL laxity range of motion 0 to 125 degrees of flexion. Otherwise stable. DVT prophylaxis with foot pumps and postoperatively early mobility and Lovenox. The limb was exsanguinated with the Esmarch and tourniquet inflated to 250 mmHg. A midline incision was made followed by medial parapatellar arthrotomy. An extensile medial release was performed. The soft tissue on the anterior aspect of the distal femur was resected. The synovial reflection in the lateral gutter was released. Retropatellar fat pad resected. Patella everted and knee flexed. The ACL was diminutive and at least partially if not completely absent. PCL intact. Both were resected. There were significant osteophytes throughout the knee including the patella femur and tibia especially medially. There were large areas of grade 4 bipolar changes in the medial compartment of the knee with a deficient medial meniscus. Lateral meniscus intact and lateral cartilage looked relatively okay. There were grade 3 changes mostly around the patella. The patella measured 22 mm in thickness. The synovium around it was resected. The guide was set to preserve 14 mm. The paddle was applied and the cut was made. A 38 patella was selected. The paddle was aligned with the knee components and the lug holes were drilled. Trialing was performed and good with no hands technique. There was a accessory ossicle superior and lateral. 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 This was loose. It was about 1 x 1.5 cm and weight was excised. This resulted in the central portion of the tendon having a defect of its attachment to the superior patella. At the conclusion of the procedure this was fixed by inserting a juggernaut anchor. A tension weave was made with one of the sutures and the other was placed in a horizontal mattress fashion. The quad tendon was then advanced into the defect and sutures were tied. This was perhaps 1/4-1/5 of the intact lateral quadriceps expansion. The bony surface was prepared by curettage and rongeur. To aid in healing. This will all was performed at the conclusion of the operation. The tibia was subluxated and a medical office technology instructor hole was drilled into the proximal tibia. Composite patellar thickness at the conclusion of the operation was 22-1/2 mm. A guide margarita was introduced followed by the 0 degree cutting block which was applied to the tibia. The extra medullary alignment margarita was utilized confirming slope and alignment. The cut was then made and sized to a 4. Attention was turned to the femur where a medical office technology instructor hole was drilled just above the PCL followed by insertion of the intramedullary alignment margarita. The guide was affixed to the distal femur and set at 5 degrees left valgus and a 12 mm thick cut. The cut was made and the extension gap was a symmetric 10. The epicondylar axis was marked out. The distal femoral sizing guide was applied and sized to a 4. The external rotation drill holes were made and matched the epicondylar axis. The collateral ligaments were protected and the 4-in-1 block was utilized to make the remainder of the distal femoral cuts protecting the collateral ligaments. Posterior osteophytes and osteophytes under the collateral ligaments were removed. The box cutting guide was applied and l ateralized and the box cut was made. The flexion gap was also symmetric 10. The trial femur was applied. The tibia was prepared with the keel and punch. The trial tibia was applied and the 10 spacer was utilized demonstrating no laxity to varus or valgus stress in full extension or or at 90. There was trace varus valgus laxity in mid position and good patellar tracking. The components were removed. The canals were plugged. Ortho joint mix was injected in the back the knee and the knee was copiously irrigated with pulsatile lavage and the bony surfaces were meticulously dried. Drilling of eburnated bone was performed on the posterior medial tibia. The components were cemented into place. Femur tibia patella with 2 bags of Simplex P cement. The knee was held in full extension until the cement hardened. The tourniquet was then let down after 90 minutes of inflation. Meticulous hemostasis. Copious lavage. The remainder of the Ortho joint mix was injected while the cement was hardening. Back the knee was inspected for cement and after checking laxity the final polyethylene was inserted. The extensor mechanism was closed with interrupted #2 FiberWire's above the equator of the patella and running and interrupted #1 Vicryl below. The skin was closed in layers with 0 and 2-0 Vicryl and satnam on the skin. The leg was cleaned with wet and dry dressings and a soft sterile dressing Xeroform 4 x 4's ABD soft wrap full-length Rohit wrap and knee immobilizer were applied. Patient was then awakened from anesthesia and taken to the recovery room in stable condition. The resected bone was sent for specimen. Counts were correct. Blood loss was estimated to be 5 cc. At the conclusion the operation I contacted patient's and informed her of my findings. No complications. Rehab according to the total knee arthroplasty protocol. Weight-bear as tolerated. He had a [employer] PFC Sigma rotating platform knee 38 3 peg oval dome patella size 4 x 10 polyethylene insert size 4 mobile-bearing keeled tibial tray and a size 4 left posterior stabilized femur. I attest to the content of the Intraoperative Record and any orders documented therein. Any exceptions are noted below.
--- NOTE | 2022-05-02 17:22 | Operative Report ---
Post Operative Report Pre & Post Diagnosis Operation Date: 05/02/22 13:30 Pre-Op Diagnosis: Left Knee Degenerative Joint Disease Post-Op Diagnosis: Left Knee Degenerative Joint Disease I identified the patient and participated in the time-out.: Yes Procedure Operation Date: 05/02/22 13:30 Actual Procedures p Left Total Knee Arthroplasty(Left) - Vipin Saavedra MD Surgeon Vipin Saavedra M.D. Peripheral Vascular Tech Izzy Vazquez PA-C. No resident or fellow available Estimated Blood Loss 5 Findings Consistent with Post-Op Diagnosis left knee OA Specimens bone and soft tissue Anesthesia Type MAC Spinal Regional Description of Procedure Patient was taken to the operating room, placed under IV sedation with spinal and peripheral nerve block. Time out performed. He was given 2 gm IV Ancef for surgical prophylaxis. I was present during the entire case, please see Dr. Saavedra's operative report for further detail. Patient was awakened and taken to the recovery room in stable condition. I attest to the content of the Intraoperative Record and any orders documented therein. Any exceptions are noted below.
--- NOTE | 2022-05-02 17:47 | Anesthesiology Progress Note ---
Date of Service May 02, 2022 Anesthesia Post Procedure Vital Signs Vital Signs: Temp Pulse Pulse Resp BP Pulse Ox O2 Del Method 05/02/22 17:40 36.3 C L 96 H 19 154/88 H 95 Room Air 05/02/22 17:30 95 H 20 118/67 94 Room Air 05/02/22 17:20 94 H 22 104/62 95 Room Air 05/02/22 17:10 95 H 20 122/70 95 Oxymask 05/02/22 17:02 36.3 C L 93 H 16 125/72 97 Oxymask 05/02/22 11:36 36.8 C 102 H 20 136/93 96 Room Air O2 Flow Rate 05/02/22 17:40 05/02/22 17:30 05/02/22 17:20 05/02/22 17:10 7 05/02/22 17:02 7 05/02/22 11:36 Transfer of Care Handoff Completed per policy Notes Mental Status: alert / awake / arousable and participated in evaluation Patient Amnestic to Procedure: Yes Nausea / Vomiting: adequately controlled Pain: adequately controlled Airway Patency, RR, SpO2: stable & adequate BP & HR: stable & adequate Hydration State: stable & adequate Anesthetic Complications: no major complications apparent and Pt Satisfied with anesthetic care
--- NOTE | 2022-05-02 17:51 | XRay Report ---
XR knee LT 1 or 2V routine CLINICAL HISTORY: Surgical Post Op TECHNIQUE: 2 views of the left knee were obtained. Comparison: Comparison is made to leg length study 04/24/2022 FINDINGS: Patient is status post total knee arthroplasty with expected postsurgical changes including soft tiss ue swelling and subcutaneous emphysema. No periarticular lucency or hardware fracture is seen. IMPRESSION: Expected postoperative appearance status post placement of total knee arthroplasty. ACT 112: Negative or not required by law. Electronically signed by: James Admaes M.D. 05/02/2022 5:50 PM
[2022-05-02] MEDS ORDERED: bisacodyL 10 MG SUPP PR PRN (17:54)
[2022-05-02] MEDS ORDERED: TAMSULOSIN HCL 0.4 MG CAP PO PRN (17:54)
[2022-05-02] MEDS ORDERED: MAGNESIUM HYDROXIDE SUSP 30 ML UDC PO PRN (17:54)
[2022-05-02] MEDS ORDERED: HYDROmorphone INJ 0.5 MG/0.5 ML SYR IV PRN (17:54)
[2022-05-02] MEDS: SODIUM CHLORIDE 0.9% 1000ML 1,000 ML IV SCH (19:30)
[2022-05-02] MEDS: KETOROLAC TROMETHAMINE 15 MG/ML VIAL IV SCH (19:30)
[2022-05-02] MEDS: CHECK CLONIDINE PATCH PLACEMENT SCH ×2 (19:51→19:52)
[2022-05-02] MEDS: oxyCODONE HCL IR 5 MG TAB (IMMEDIATE RELEASE) PO SCH (20:27)
[2022-05-02] MEDS ORDERED: NON-FORMULARY MEDICATION (Multivitamin Capsule) PO SCH (21:00)
[2022-05-02] MEDS ORDERED: MULTIVITAMIN TAB PO SCH (21:00)
[2022-05-02] MEDS ORDERED: DOXEPIN HCL 75 MG CAPSULE PO SCH (21:00)
[2022-05-02] MEDS ORDERED: ASPIRIN 81 MG CHEW PO SCH (21:00)
[2022-05-02] MEDS ORDERED: SENNA 8.6 MG TAB PO SCH (21:00)
[2022-05-02] MEDS ORDERED: ATORVASTATIN 40 MG TAB PO SCH (21:00)
[2022-05-02] MEDS: DOCUSATE SODIUM 100 MG CAP PO SCH (21:45)
[2022-05-02] MEDS: ACETAMINOPHEN 500 MG TAB PO SCH (22:55)
[2022-05-02] MEDS: ceFAZolin 2000MG 2,000 MG/15 ML SYR IV SCH (23:10)
[2022-05-03] MEDS: oxyCODONE HCL IR 5 MG TAB (IMMEDIATE RELEASE) PO PRN ×3 (00:32→11:54)
[2022-05-03] MEDS: CHECK CLONIDINE PATCH PLACEMENT SCH ×2 (00:34→09:13)
[2022-05-03] MEDS: KETOROLAC TROMETHAMINE 15 MG/ML VIAL IV SCH ×3 (00:36→11:56)
[2022-05-03] MEDS: ACETAMINOPHEN 500 MG TAB PO SCH (05:57)
[2022-05-03] MEDS: SODIUM CHLORIDE 0.9% 1000ML 1,000 ML IV SCH (05:58)
[2022-05-03] MEDS: ceFAZolin 2000MG 2,000 MG/15 ML SYR IV SCH (06:03)
[2022-05-03] MEDS ORDERED: ENOXAPARIN INJ 30 MG/0.3 ML SYR SQ SCH (07:00)
[2022-05-03 07:45] LABS: Hematocrit (blood only) 34.2 % (40.1-51.0); Hemoglobin 12.2 g/dl (14.0-18.0); Mean Corpuscular Hemoglobin 35.5 pg (25.0-34.0); Mean Corpuscular Hgb Conc 35.7 g/dL (32.0-36.0); Mean Corpuscular Volume 99.4 fL (80.0-100.0); Mean Platelet Volume 10.4 fL (9.4-12.4); Platelet Count 190 K/uL (130-400); RDW Coefficient of Variation 11.7 % (11.5-14.5); RDW Standard Deviation 42.4 fL (36.4-46.3); Red Blood Count 3.44 M/uL (4.63-6.08); White Blood Count 21.07 K/ul (4.8-10.8)
[2022-05-03] MEDS ORDERED: dexAMETHasone 4 MG TAB PO SCH (08:00)
[2022-05-03 08:25] LABS: BUN Creatinine Ratio 18.7 (10-20); Calcium 8.5 mg/dl (8.5-10.1); Creatinine Clr Calc Pharmacy 59.3 ml/min; Est GFR (African American) 67.1 ml/min; Est GFR (Non-African American) 57.9 ml/min; Potassium 3.8 mmol/L (3.5-5.1)
[2022-05-03] MEDS ORDERED: ARIPiprazole 10 MG TAB PO SCH (09:00)
[2022-05-03] MEDS: DOCUSATE SODIUM 100 MG CAP PO SCH (09:12)
[2022-05-03] MEDS: oxyCODONE HCL IR 5 MG TAB (IMMEDIATE RELEASE) PO SCH (09:15)
--- NOTE | 2022-05-03 10:56 | Orthopedic Progress Note ---
Date of Service May 03, 2022 Assessment & Plan (1) Status post total left knee replacement: Plan: POD 1 PT/OT today OOB weight bear as tolerated LLE with assistance of a knee immobilizer and walker. Regular diet as ordered Pain medication as prescribed. Ice and elevation to left knee/left leg as needed for pain/swelling. Case management for disposition. Lovenox and AV impulse boots, TEDs for DVT prophylaxis. Plans for discharge to home with home health today. Patient understands and agrees with the plan. HH arranged preoperatively. Discharge instructions reviewed. Dr. Saavedra present for today's visit. Admission and Anticipated Discharge Date Admission Date: May 02, 2022 Subjective Patient states that he's doing great. Very little pain, better controlled than last TKA. Denies chest pain, shortness of breath, Nausea or vomiting. Tolerating regular diet. Has been out of bed with nursing and PT/OT. Packed and ready to go home, at bedside. Physical Exam Musculoskeletal: Left knee with mild bloody drainage on dressings. Dressings removed, incision clean, dry and intact, with pinpoint drainage from distal aspect of incision. Able to independently SLR, flexes to 90 degrees. Full ankle ROM with minimal distal edema. Calf supple and nontender. [place] retained, no evidence of joint or prepatellar effusion. Strength distally 5/5. Sensation normal. Distal pulses 1+ Results & Data ([facility]) Vital Signs (Past 12 Hours) Vital Signs Temp Pulse Resp BP Pulse Ox O2 Del Method 05/03/22 10:03 36.7 C 93 H 17 110/69 92 Room Air 05/03/22 07:23 36.5 C 108 H 16 127/69 92 Room Air 05/03/22 03:44 36.9 C 98 H 18 110/64 93 Room Air Laboratory Results 05/03/22 05/03/22 05/02/22 Range/Units 07:15 07:15 11:28 WBC 21.07 H (4.8-10.8) K/ul RBC 3.44 L (4.63-6.08) M/uL Hgb 12.2 L (14.0-18.0) g/dl Hct 34.2 L (40.1-51.0) % MCV 99.4 (80.0-100.0) fL MCH 35.5 H (25.0-34.0) pg MCHC 35.7 (32.0-36.0) g/dL RDW Std Deviation 42.4 (36.4-46.3) fL RDW Coeff of Carlos 11.7 (11.5-14.5) % Plt Count 190 (130-400) K/uL MPV 10.4 (9.4-12.4) fL Sodium 135 L (136-145) mmol/L Potassium 3.8 (3.5-5.1) mmol/L Chloride 107 (98-107) mmol/L Carbon Dioxide 21 (21-32) mmol/L Anion Gap 7 (3-11) BUN 23 (6-23) mg/dl Creatinine 1.23 (0.6-1.4) mg/dl Est Cr Clr Drug Dosing 59.3 ml/min Est GFR ( Amer) 67.1 ml/min Est GFR (Non-Af Amer) 57.9 ml/min BUN/Creatinine Ratio 18.7 (10-20) Glucose 170 H (70-99(Fasting)) mg/dl Calcium 8.5 (8.5-10.1) mg/dl SARS-CoV-2, RNA, NAAT NEGATIVE (NEGATIVE)
[2022-05-03] MEDS ORDERED: CeleBREX 200 MG CAP PO SCH (21:00)
--- NOTE | 2022-05-04 10:58 | Discharge Summary ---
Date of Service May 04, 2022 Discharge Data Procedures Performed Operation Date: 05/02/22 13:30 Actual Procedures p Left Total Knee Arthroplasty(Left) - Vipin Saavedra MD Hospital Course (1) Status post total left knee replacement: Patient was admitted to [facility] for observation after undergoing an elective left total knee arthroplasty on May 02, [address] Saavedra. His surgery was performed with IV sedation and spinal anesthetic with peripheral nerve block. He tolerated the procedure well without any intraoperative or postoperative complications. He was given 2 g of IV Ancef for surgical prophylaxis preoperatively and this was continued for 24 hours after surgery. In the PACU he had postoperative x-rays of his left knee which showed a stable prosthesis of his left knee. He was allowed out of bed, weight-bear as tolerated left lower extremity with the assistance of a walker and knee immobilizer when out of bed. He was given oxycodone, tramadol, Tylenol, Toradol, IV Dilaudid as needed for pain medication. He was given a bowel regimen during his inpatient stay as well. He was given Flomax as needed for urinary retention. His home medications were continued. He was placed on Lovenox 30 mg p.o. twice daily which started the day after his surgery for DVT prophylaxis. He was also given MOMO stockings and AV impulse boots during his inpatient stay. His vital signs were stable during his inpatient stay. Postoperative laboratory work revealed some mild blood loss anemia but stable. No transfusions were necessary during his inpatient stay. He was given a regular diet which he tolerated well during his inpatient stay. He was seen and evaluated by physical therapy and Occupational Therapy and did well out of bed. He was deemed safe for discharge to his home. Case management was involved for discharge needs. He did have home health arranged preoperatively and this was confirmed during his hospital stay. He was deemed safe for discharge to his home on May 03, 2022. He was discharged to his home in stable condition with his . Home health arrangements were made prior to leaving. He did have a walker for use at home. Discharge instructions were reviewed and as below. Pain medication was also sent to his pharmacy. His Lovenox was sent to his pharmacy upon discharge as well.
== END 2022-05-03 14:54 | disposition home health service (06) ==
LOC: ASU 11:10 → PACUINP 11:10 → 3E 19:33